=== PATIENT | male | born 1960 | race Caucasian/White ===

== ENCOUNTER 2018-05-30 07:22 | Day surgery (SDC) | payer BC ==
[~2018-05-30] VITALS: Ht 172.7 cm; Wt 65.0 kg
[~2018-05-30 07:22] MED LIST: NS 1,000 ML IV ONE; PROPOFOL 200 MG/20 ML VIAL As Ordered ONE
--- NOTE | 2018-05-30 09:00 | ROOR ---
Patient Name: Srinivasan Clemons Procedure Date: 05/30/2018 8:30 AM Date of : 1960 Age: 57 Room: [facility] Gender: Male Note Status: Finalized Procedure: Colonoscopy Indications: Hematochezia Providers: DO Sarai Nava MD: Moshe Gibbs MD Requesting Provider: Medicines: Propofol per Anesthesia Complications: No immediate complications. Estimated blood loss: Minimal. Procedure: Pre-Anesthesia Assessment: - Prior to the procedure, a History and Physical was performed, and patient medications and allergies were reviewed. The patient is competent. The risks and benefits of the procedure and the sedation options and risks were discussed with the patient. All questions were answered and informed consent was obtained. Patient identification and proposed procedure were verified by the physician, the nurse, the anesthesiologist and the patient services technician in the endoscopy suite. Mental Status Examination: alert and oriented. Airway Examination: normal oropharyngeal airway and neck mobility. Respiratory Examination: clear to auscultation. CV Examination: normal. Prophylactic Antibiotics: The patient does not require prophylactic antibiotics. Prior Anticoagulants: The patient has taken no previous anticoagulant or antiplatelet agents. ASA Grade Assessment: II - A patient with mild systemic disease. After reviewing the risks and benefits, the patient was deemed in satisfactory condition to undergo the procedure. The anesthesia plan was to use monitored anesthesia care (MAC). Immediately prior to administration of medications, the patient was re-assessed for adequacy to receive sedatives. The heart rate, respiratory rate, oxygen saturations, blood pressure, adequacy of pulmonary ventilation, and response to care were monitored throughout the procedure. The physical status of the patient was re-assessed after the procedure. The Colonoscope was introduced through the anus and advanced to the cecum, identified by appendiceal orifice and ileocecal valve. The colonoscopy was performed without difficulty. The patient tolerated the procedure well. Findings: The perianal exam findings include non-thrombosed internal hemorrhoids and internal hemorrhoids that prolapse with straining, but spontaneously regress to the resting position (Grade II). Two hyperplastic polyps were found in the sigmoid colon and cecum. The polyps were 2 to 5 mm in size. These polyps were removed with a jumbo cold forceps. Resection and retrieval were complete. Estimated blood loss was minimal. The exam was otherwise without abnormality on direct and retroflexion views. Impression: - Non-thrombosed internal hemorrhoids and internal hemorrhoids that prolapse with straining, but spontaneously regress to the resting position (Grade II) found on perianal exam. - Two 2 to 5 mm polyps in the sigmoid colon and in the cecum, removed with a jumbo cold forceps. Resected and retrieved. - The examination was otherwise normal on direct and retroflexion views. Recommendation: - Patient has a contact number available for emergencies. The signs and symptoms of potential delayed complications were discussed with the patient. Return to normal activities tomorrow. Written discharge instructions were provided to the patient. - Repeat colonoscopy in 5-10 years for surveillance based on pathology results. - Return to my office PRN. - Telephone my office for pathology results in 1 week. Bismark Berkowitz DO 05/30/2018 9:00:14 AM This report has been signed electronically. Number of Addenda: 0 Note Initiated On: 05/30/2018 8:30 AM Estimated Blood Loss: Estimated blood loss was minimal.
[2018-05-30 11:00] VITALS: BP 142/78
--- NOTE | 2018-05-30 11:21 | REP ---
KUB: Two views provided. Portably obtained supine. History: Abdomen pain. Findings: The lung bases are clear. There is mild gaseous distension of the proximal and distal colon question ileus versus enteritis. . No visible stool. Flank stripes are intact. No mass, organomegaly, or pathologic calcification is seen. Impression: Mild gaseous distension of the colon. No stool visible. Question ileus versus enteritis. Otherwise negative. Electronically Signed by Jayy Loco MD 05/30/2018 11:14 A
== END 2018-05-30 11:05 | disposition home or self-care (01) ==
LOC: M OPP 07:22
PROVIDERS: ATTEND Surgery
DX: K62.5 Hemorrhage of anus and rectum (principal); K64.1 Second degree hemorrhoids; D12.5 Benign neoplasm of sigmoid colon; D12.0 Benign neoplasm of cecum; F17.210 Nicotine dependence, cigarettes, uncomplicated

== ENCOUNTER 2018-08-10 10:16 | Day surgery (SDC) | payer BC ==
[~2018-08-10] VITALS: Ht 175.3 cm; Wt 66.7 kg
[~2018-08-10 10:16] MED LIST changes: +LIDOCAINE 1% MDV 20ML VIAL SQ PRN; +LR 1,000 ML IV ONE; -NS 1,000 ML IV ONE; -PROPOFOL 200 MG/20 ML VIAL As Ordered ONE
[2018-08-10] MEDS ORDERED: dexameTHASONE 4 MG/ML 1ML VIAL (J1100) As Ordered ONE (10:58)
[2018-08-10] MEDS ORDERED: fentaNYL 100 MCG/2 ML INJECTION (J3010) As Ordered ONE ×3 (10:58→16:24)
[2018-08-10] MEDS ORDERED: KETOROLAC 60 MG/2 ML VIAL (J1885) As Ordered ONE (10:58)
[2018-08-10] MEDS ORDERED: ONDANSETRON 4MG/2ML VIAL (J2405) As Ordered ONE (10:58)
[2018-08-10] MEDS ORDERED: PROPOFOL 200 MG/20 ML VIAL As Ordered ONE (10:58)
[2018-08-10] MEDS ORDERED: MIDAZOLAM INJ 2 MG/2 ML VIAL (J2250) As Ordered ONE (10:58)
[2018-08-10] MEDS ORDERED: ROCURONIUM BROMIDE 50 MG/5 ML VIAL As Ordered ONE ×2 (10:58→15:13)
[2018-08-10] MEDS ORDERED: LIDOCAINE 2% INJ 100 MG/5 ML SDV (FOR ANES.) As Ordered ONE (10:58)
[2018-08-10] MEDS ORDERED: GLYCOPYRROLATE INJ 0.2 MG/ML 2 ML VIAL As Ordered ONE (10:58)
[2018-08-10] MEDS ORDERED: NEOSTIGMINE 10 MG/10 ML VIAL (J2710) As Ordered ONE (10:58)
[2018-08-10] MEDS ORDERED: BUPIVACAINE/EPIN 0.25% 30 ML VIAL As Ordered ONE (14:32)
[2018-08-10] MEDS ORDERED: NORCO, ANEXSIA 5/325MG TABLET (HYDROcodone/ACETAMINOPHEN) As Ordered ONE (16:24)
[2018-08-10] MEDS: NORCO, ANEXSIA 5/325MG TABLET (HYDROcodone/ACETAMINOPHEN) PO PRN ×2 (16:25→17:14)
[2018-08-10] MEDS: fentaNYL 100 MCG/2 ML INJECTION (J3010) IV PRN ×4 (16:25→16:40)
[2018-08-10] MEDS ORDERED: LR 1,000 ML IV SCH (16:45)
[2018-08-10] MEDS ORDERED: NORCO, ANEXSIA 5/325MG TABLET (HYDROcodone/ACETAMINOPHEN) PO PRN (16:45)
[2018-08-10] MEDS ORDERED: ONDANSETRON 4MG/2ML VIAL (J2405) IV PRN (16:45)
[2018-08-10 18:10] VITALS: BP 136/76
--- NOTE | 2018-08-10 18:27 | RO ---
DATE OF PROCEDURE: 08/10/2018 PREOPERATIVE DIAGNOSIS: Right inguinal hernia. POSTOPERATIVE DIAGNOSIS: Right inguinal hernia. PROCEDURE: Robotic right inguinal hernia repair. SURGEON: Dr. Berkowitz DISPATCHER CHIEF OIL: Dana Khanna ANESTHESIA: General. ESTIMATED BLOOD LOSS: 5 COMPLICATIONS: None. INDICATION FOR PROCEDURE: Patient is a 57-year-old male presents with right groin pain with intermittent bulge found to have a large right inguinal hernia on exam. Recommendation was to proceed with robotic repair. Risks and benefits of the procedure not limited but including bleeding, infection, hernia recurrence, hernia formation, damage to surrounding structures and possible need for further surgery where discussed in detail with the patient and informed consent was obtained and procedure was planned. PROCEDURE: The patient brought back to operating room seven after sufficient sedation. The abdomen was sterilely prepped and draped. Next time-out was done to confirm proper patient and proper procedure. Following that a stab incision made in left lower quadrant. Veress needle was inserted and the abdomen was insufflated to 50 mmHg. Next the 8 mm supraumbilical midline incision was made in an 8 mm robotic port was used to gain access to the abdomen. Once the abdomen was entered Veress needle site was examined and there were no signs was no signs of any injury. Veress needle was then removed and replaced with an 8 mm robotic port. Another 8 mm port was placed on the right side. The robot was then connected to the ports targeted to the right groin. Next the peritoneum was incised in a curved fashion over lying a right inguinal hernia. The preperitoneal space was dissected freely medially and laterally and then the hernia sac was gently dissected free from all the cord structures and dissected posteriorly to create enough room to place the mesh. The Bard 3-D Max medium mesh was placed into the preperitoneal sutured to the pubic symphysis using a 2-0 Vicryl suture. The pocket of the peritoneum was then closed over top of the mesh using a running 2-0 V-Loc suture. Once this was completed the abdomen was desufflated. Skin incision was were closed with 4-0 Vicryl subcuticular sutures and Steri-Strips, 4x4 and tape were applied thus ending procedure.
--- NOTE | 2018-08-11 06:35 | ECGEPIP ---
Stationary ECG Study [facility] Test Date: 2018-08-10 Pat Name: KATIE ALVA Department: Room: - Gender: M Watchstander: ZRT : 1960 Requested By: MIGUE Couch Order Number: [id number] Reading MD: Rianna Moreno Measurements Intervals [place] Rate: 56 P: 64 TN: 179 QRS: 17 QRSD: 125 T: 28 QT: 464 QTc: 449 Interpretive Statements SINUS BRADYCARDIA RIGHT BUNDLE BRANCH BLOCK CANNOT R/O OLD IWMI NO PRIOR Electronically Signed On 08-11-2018 6:35:01 EDT by Rianna Moreno
== END 2018-08-10 18:13 | disposition home or self-care (01) ==
LOC: M SDC 10:16
PROVIDERS: ATTEND Surgery
DX: K40.90 Unilateral inguinal hernia, without obstruction or gangrene, not specified as recurrent (principal); F17.210 Nicotine dependence, cigarettes, uncomplicated
CPT/HCPCS: 49650; 93005; C1781; J0690; J1100; J1885; J2250; J2405; J2710; J3010